=== PATIENT | male | born 1985 | race American Indian/Alaskan Native ===

== ENCOUNTER 2017-07-04 16:13 | Emergency (ER) | payer OTHER ==
[2017-07-04 16:27] VITALS: RESP 16; TEMP 98.4; O2SAT 99
[2017-07-04 16:32] VITALS: BMI 29.8
--- NOTE | 2017-07-04 17:03 | ED PDOC ---
HPI: General Adult Time Seen by Provider: 07/04/17 17:02 Chief Complaint (Nursing): GI Problem Chief Complaint (Provider): rectal bleeding History Per: Patient (31 y/o male h/o Liver cirrhosis here with rectal bleeding noted today. States he felt nauseaous/denies any vomiting. 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 08/2016) Past Medical History Reviewed: Historical Data, Nursing Documentation, Vital Signs Vital Signs: Last Vital Signs Temp 98.4 F 07/04/17 16:26 Pulse 86 07/04/17 19:32 Resp 16 07/04/17 19:32 BP 144/83 07/04/17 19:32 Pulse Ox 99 07/04/17 19:32 - Family History Family History: States: Unknown Family Hx - Immunization History Hx Influenza Vaccination: Yes Hx Pneumococcal Vaccination: No - Home Medications Home Medications: Ambulatory Orders Medication Instructions Recorded Docusate Sodium [Colace] 100 mg PO BID #14 capsule 07/04/17 Hard Fat/Phenylephrine [place] 1 sup UT DAILY #7 sup 07/04/17 [Hemorrhoidal 88.7%-0.25%] - Allergies Allergies/Adverse Reactions: Allergies Allergy/AdvReac Type Severity Reaction Status Date / Time No Known Allergies Allergy Verified 07/04/17 00:39 Review of Systems ROS Statement: Except As Marked, All Systems Reviewed And Found Negative Physical Exam - Reviewed Nursing Documentation Reviewed: Yes Vital Signs Reviewed: Yes - Physical Exam Appears: Positive for: Well, Non-toxic, No Acute Distress Head Exam: Positive for: ATRAUMATIC, NORMAL INSPECTION, NORMOCEPHALIC Skin: Positive for: Normal Color, Warm, DRY Eye Exam: Positive for: EOMI, Normal appearance, PERRL ENT: Positive for: Normal ENT Inspection Neck: Positive for: Normal, Painless ROM Cardiovascular/Chest: Positive for: Regular Rate, Rhythm Respiratory: Positive for: CNT, Normal Breath Sounds Gastrointestinal/Abdominal: Positive for: Normal Exam, Soft Back: Positive for: Normal Inspection Rectal: Positive for: Hemorrhoids (small hemorrhoid noted external; blood noted brown stool rectal exam) Extremity: Positive for: Normal ROM Neurologic/Psych: Positive for: Alert, Oriented - Laboratory Results Result Diagrams: 07/04/17 17:14 07/04/17 17:14 - ECG O2 Sat by Pulse Oximetry: 99 Disposition - Clinical Impression Clinical Impression: Hematochezia - Patient ED Disposition Is Patient to be Admitted: No - Disposition Referrals: Sharath Esqueda MD [Staff Provider] - [facility] [Outside] Disposition: Routine/Home Disposition Time: 19:48 Condition: FAIR Prescriptions: Docusate Sodium [Colace] 100 mg PO BID #14 capsule Hard Fat/Phenylephrine [place] [Hemorrhoidal 88.7%-0.25%] 1 sup UT DAILY #7 sup Instructions: Bloody Stools, Adult (DC) Forms: [facility] (Sami)
[2017-07-04 17:39] LABS: PARTIAL THROMBOPLASTIN TIME 30.9 Seconds (25.6-37.1)
[2017-07-04 17:43] LABS: BASO # 0.1 K/uL (0.0-0.2); BASO % 1.2 % (0.0-2.0); EOS # 0.1 K/uL (0.0-0.7); EOS % 1.1 % (0.0-4.0); HEMOGLOBIN 14.2 g/dL (12.0-18.0); LYMPH # 2.3 K/uL (1.0-4.3); LYMPH % 23.1 % (20.0-40.0); MEAN CORPUSCULAR HEMOGLOBIN 30.7 pg (27.0-31.0); MEAN CORPUSCULAR HGB CONC 34.5 g/dL (33.0-37.0); MEAN PLATELET VOLUME 10.6 fl (7.2-11.7); MONO # 0.9 K/uL (0.0-0.8); NEUT # 6.6 K/uL (1.8-7.0); NEUT % 65.6 % (50.0-75.0); NRBC % 0.2 % (0.0-0.0); RBC 4.61 Mil/uL (4.40-5.90); RED CELL DISTRIBUTION WIDTH 15.1 % (11.5-14.5); WHITE BLOOD COUNT 10.1 K/uL (4.8-10.8)
[2017-07-04 17:44] LABS: ALB/GLOB RATIO 1.3 (1.0-2.1); ALBUMIN 4.7 g/dL (3.5-5.0); ALT/SGPT 44 U/L (21-72); AST/SGOT 38 U/L (17-59); BLOOD UREA NITROGEN 16 mg/dl (9-20); CALCIUM 9.6 mg/dL (8.4-10.2); GFR AFRICAN-AMERICAN > 60; GFR NON-AFRICAN AMERICAN > 60
[2017-07-04 19:32] VITALS: BP 144/83; PULSE 86
== END 2017-07-04 20:13 | disposition home or self-care (01) ==
LOC: H.ER 16:13
DX: K92.1 Melena (principal); K74.60 Unspecified cirrhosis of liver
CPT/HCPCS: 80053; 80320; 85025; 85610; 85730; 86850; 86900; 99285; G0328

== ENCOUNTER 2017-10-20 23:24 | Emergency (ER) | payer SELFPAY ==
[2017-10-20 23:24] VITALS: BMI 29.8
--- NOTE | 2017-10-20 23:44 | ED PDOC ---
HPI: Abdomen Time Seen by Provider: 10/20/17 23:44 Chief Complaint (Nursing): Abdominal Pain Chief Complaint (Provider): abdominal pain History Per: Patient Additional Complaint(s): 32-year-old male presents with intermittent abdominal pain for the past 3 days. Patient states he had one episode of diarrhea today with no associated nausea or vomiting. Patient has decreased appetite. No fever or chills. PMD: none Past Medical History Reviewed: Historical Data, Nursing Documentation, Vital Signs - Medical History PMH: No Chronic Diseases - Surgical History Surgical History: No Surg Hx - Family History Family History: States: No Known Family Hx - Social History Current smoker - smoking cessation education provided: Yes Alcohol: None Drugs: Denies - Home Medications Home Medications: Ambulatory Orders Medication Instructions Recorded Docusate Sodium [Colace] 100 mg PO BID #14 capsule 07/04/17 Hard Fat/Phenylephrine [place] 1 sup [place] DAILY #7 sup 07/04/17 [Hemorrhoidal 88.7%-0.25%] Famotidine [Pepcid] 20 mg PO BID #60 tab 10/21/17 Ondansetron [Zofran Odt] 4 mg PO ASDIR PRN #20 odt 10/21/17 - Allergies Allergies/Adverse Reactions: Allergies Allergy/AdvReac Type Severity Reaction Status Date / Time No Known Allergies Allergy Verified 07/04/17 00:39 - Laboratory Results Result Diagrams: 10/21/17 00:10 10/21/17 00:10 Medical Decision Making Medical Decision Makin32 year old male with abdominal pain Plan: CBC CMP Lipase KUB PO zofran and pepcid Patient aware of diagnostic testing results, all questions answered. Patient tolerated juice and sandwich in ED. Prescription questions given for Zofran and Pepcid. Patient was referred to clinic for follow-up. Disposition - Clinical Impression Clinical Impression: Abdominal pain, Pancreatitis - Patient ED Disposition Is Patient to be Admitted: No Counseled Patient/Family Regarding: Studies Performed, Diagnosis, Need For Followup, Rx Given - Disposition Referrals: [facility] [Outside] Disposition: Routine/Home Disposition Time: 01:10 Condition: STABLE Additional Instructions: Take prescription meds as directed. Follow bland diet and drink plenty of clear liquids. Avoid use of alcohol. Follow-up with clinic in 2-3 days or return any time if acutely worse. Prescriptions: Famotidine [Pepcid] 20 mg PO BID #60 tab Ondansetron [Zofran Odt] 4 mg PO ASDIR PRN #20 odt PRN Reason: Nausea/Vomiting Instructions: Pancreatitis Forms: [facility] (Indonesian) Results - Lab Results Lab Results: 10/21/17 10/21/17 00:10 00:10 WBC 6.8 RBC 4.85 Hgb 14.4 Hct 42.7 MCV 88.1 MCH 29.7 MCHC 33.8 RDW 14.1 Plt Count 193 MPV 9.4 Neut % (Auto) 61.6 Lymph % (Auto) 27.8 [place] % (Auto) 8.2 Eos % (Auto) 1.7 Baso % (Auto) 0.7 Neut # (Auto) 4.2 Lymph # (Auto) 1.9 [place] # (Auto) 0.6 Eos # (Auto) 0.1 Baso # (Auto) 0.1 Sodium 142 Potassium 3.6 Chloride 104 Carbon Dioxide 27 Anion Gap 15 BUN 14 Creatinine 0.9 Est GFR ( Amer) > 60 Est GFR (Non-Af Amer) > 60 Random Glucose 107 Calcium 9.2 Total Bilirubin 0.7 AST 42 ALT 43 Alkaline Phosphatase 40 Total Protein 7.8 Albumin 4.6 Globulin 3.2 Albumin/Globulin Ratio 1.5 Lipase 441 H Alcohol, Quantitative 174 H
[2017-10-21 00:23] LABS: BASO # 0.1 K/uL (0.0-0.2); BASO % 0.7 % (0.0-2.0); EOS # 0.1 K/uL (0.0-0.7); EOS % 1.7 % (0.0-4.0); HEMOGLOBIN 14.4 g/dL (12.0-18.0); LYMPH # 1.9 K/uL (1.0-4.3); LYMPH % 27.8 % (20.0-40.0); MEAN CELL VOLUME 88.1 fl (80.0-94.0); MEAN CORPUSCULAR HEMOGLOBIN 29.7 pg (27.0-31.0); MEAN CORPUSCULAR HGB CONC 33.8 g/dL (33.0-37.0); MEAN PLATELET VOLUME 9.4 fl (7.2-11.7); MONO # 0.6 K/uL (0.0-0.8); MONO % 8.2 % (0.0-10.0); NEUT # 4.2 K/uL (1.8-7.0); NEUT % 61.6 % (50.0-75.0); RBC 4.85 Mil/uL (4.40-5.90); RED CELL DISTRIBUTION WIDTH 14.1 % (11.5-14.5); WHITE BLOOD COUNT 6.8 K/uL (4.8-10.8)
[2017-10-21 00:59] LABS: ALBUMIN 4.6 g/dL (3.5-5.0); ALT/SGPT 43 U/L (21-72); AST/SGOT 42 U/L (17-59); BLOOD UREA NITROGEN 14 mg/dl (9-20); CALCIUM 9.2 mg/dL (8.4-10.2); GFR AFRICAN-AMERICAN > 60; GFR NON-AFRICAN AMERICAN > 60; LIPASE 441 U/L (23-300)
[2017-10-21 01:03] LABS: ALB/GLOB RATIO 1.5 (1.0-2.1)
--- NOTE | 2017-10-21 11:14 | RAD ---
Date of service: 10/21/2017 HISTORY: abd pain COMPARISON: No prior. FINDINGS: BOWEL: Nonobstructive bowel gas pattern appreciated. Mild retained fecal material is seen in various large-bowel segments. A limited amount of gas is present in apparent central small bowel loops and at the right prachi abdomen. BONES: Normal. OTHER FINDINGS: No prominent free intra peritoneal gas. Vascular calcifications are suggested the inferior pelvis soft tissues. IMPRESSION: Nonobstructive bowel gas pattern appreciated. Mild fecal loading in segments of large bowel.
== END 2017-10-21 01:30 | disposition home or self-care (01) ==
LOC: H.ER 23:24
DX: K85.90 Acute pancreatitis without necrosis or infection, unspecified (principal); F17.200 Nicotine dependence, unspecified, uncomplicated
CPT/HCPCS: 74018; 80053; 83690; 85025; 99283; G0480